=== PATIENT | female | born 1945 | race Caucasian/White ===

== ENCOUNTER 2017-04-11 09:48 | Day surgery (SDC) | payer MEDICARE, OTHER ==
[2017-04-11 10:21] VITALS: BMI 24.4
[2017-04-11] MEDS ORDERED: PROPOFOL 20 ML ONE (10:29)
[2017-04-11 12:58] VITALS: TEMP 98.2
[2017-04-11 13:00] VITALS: BP 134/69; PULSE 66
--- NOTE | 2017-04-12 14:35 | PATH ---
Surgical Pathology Report Patient Name: DAMIEN QUEEN [facility]. Rec. #: [id number] /Age/Gender: 1945 (Age: 71) / F Account: [id number] Location: [facility]-ENDOSCOPY Taken: 04/11/2017 Received: 04/11/2017 Reported: 04/12/2017 Physicians: Alfred Carrillo M.D. Specimen(s) Received A: BX DUODENUM B: BX ANTRUM C: BX RECTUM Clinical History GERD, change in bowel habits Distal esophagitis, gastritis, rule out celiac disease, rule out H. Pylori, rule out proctitis Final Diagnosis A. DUODENUM, BIOPSY: DUODENAL MUCOSA WITH NO PATHOLOGIC CHANGES. NO HISTOLOGIC EVIDENCE OF GLUTEN SENSITIVE ENTEROPATHY (CELIAC SPRUE) IDENTIFIED. B. STOMACH, ANTRUM, BIOPSY: MILD CHRONIC GASTRITIS AND REACTIVE GASTROPATHY. IMMUNOSTAIN FOR H. PYLORI IS NEGATIVE. C. RECTUM, BIOPSY: COLONIC MUCOSA WITH FOLLICULAR HYPERPLASIA OF MUCOSA ASSOCIATED LYMPHOID TISSUE. NO ACTIVE INFLAMMATION, ARCHITECTURAL DISTORTION, GRANULOMAS, OR DYSPLASIA IDENTIFIED. NO MICROSCOPIC COLITIS IDENTIFIED. Comment: The findings may indicate some form of antigenic stimulation to the GI tract. Electronically Signed Raul Rivera M.D. Gross Description A. Received in formalin, labeled "duodenum" are 2 ocon[place], irregular portions of soft tissue averaging 0.3 cm. in greatest dimension. The specimens are submitted in toto in one cassette. B. Received in formalin, labeled "antrum" are 2 oconnor, irregular portions of soft tissue averaging 0.4 cm. in greatest dimension. The specimens are submitted in toto in one cassette. C. Received in formalin, labeled "rectum" are 2 oconnor, irregular portions of soft tissue measuring 0.5 and 0.6 cm. in greatest dimension. The specimens are submitted in toto in one cassette. /04/11/2017 saudi04/11/2017
== END 2017-04-11 12:15 | disposition home or self-care (01) ==
LOC: FASU-ENDO 09:48
PROVIDERS: ATTEND Internal Medicine Gastroenterology
PROC: 0DB68ZX Excision of Stomach, Via Natural or Artificial Opening Endoscopic, Diagnostic (ICD-10-PCS; 2017-04-11)
PROC: 0DBP8ZX Excision of Rectum, Via Natural or Artificial Opening Endoscopic, Diagnostic (ICD-10-PCS; principal; 2017-04-11 10:59)
PROC: 0DB98ZX Excision of Duodenum, Via Natural or Artificial Opening Endoscopic, Diagnostic (ICD-10-PCS; 2017-04-11 10:59)
DX: K57.30 Diverticulosis of large intestine without perforation or abscess without bleeding (principal); K29.50 Unspecified chronic gastritis without bleeding; K20.9 Esophagitis, unspecified; K31.9 Disease of stomach and duodenum, unspecified
CPT/HCPCS: 88305-TC; 88342-TC